=== PATIENT | male | born 1995 | race Two or more races ===

== ENCOUNTER 2023-09-24 09:35 | Emergency (ER) | payer OTHER ==
[~2023-09-24] VITALS: Ht 180.3 cm; Wt 81.0 kg
[2023-09-24 12:25] VITALS: BP 142/101; PULSE 95; RESP 19; TEMP 98.4; O2SAT 98
[2023-09-24] MEDS ORDERED: KETOROLAC TROMETH 60MG/2ML VIAL IM ONE (14:30)
[2023-09-24] MEDS ORDERED: ACETAMINOPHEN 500 MG TAB PO ONE (14:30)
[2023-09-24] MEDS ORDERED: methylPREDNISolone SOD SUCC 125 MG/2 ML VL IM ONE (14:30)
[2023-09-24] MEDS ORDERED: IBUP-1454 PO (16:17)
== END 2023-09-24 16:23 | disposition home or self-care (01) ==
LOC: ER 09:35
DX: S39.012A Strain of muscle, fascia and tendon of lower back, initial encounter (principal); X50.3XXA Overexertion from repetitive movements, initial encounter; Y93.89 Activity, other specified; Y92.89 Other specified places as the place of occurrence of the external cause; Y99.8 Other external cause status
CPT/HCPCS: 72131; 96372; 99285; J1885; J2930